=== PATIENT | female | born 1950 | race Two or more races ===

== ENCOUNTER → 2021-11-19 08:31 | Outpatient (CLI) | payer OTHER, SELFPAY ==
[2021-11-19 22:12] LABS: SARS-CoV-2 RNA PCR Negative
== END ==
PROVIDERS: PCP Internal Medicine Endocrinology, Diabetes & Metabolism; Visit Provider Internal Medicine Endocrinology, Diabetes & Metabolism
DX: R09.89 Other specified symptoms and signs involving the circulatory and respiratory systems (principal); Z20.822 Contact with and (suspected) exposure to COVID-19
CPT/HCPCS: C9803; U0003; U0005